=== PATIENT | female | born 1990 | race American Indian/Alaskan Native ===

== ENCOUNTER 2021-10-22 09:56 | Emergency (ER) | payer SELFPAY ==
[2021-10-22] MEDS ORDERED: DEXAMETHASONE 4 MG TAB PO ONE (14:12)
[2021-10-22] MEDS ORDERED: PENICILLIN G BENZATHINE 1.2 MILLION UNIT/2 ML INJ IM ONE (14:12)
[2021-10-22] MEDS ORDERED: KETOROLAC 10 MG TAB PO ONE (14:12)
--- NOTE | 2021-10-22 14:31 | Emergency Department Report ---
ED ENT HPI - General Chief complaint: Pain General Stated complaint: HEAD PAIN/BODY PAIN Time Seen by Provider: 10/22/21 14:04 Source: patient Mode of arrival: Ambulatory Limitations: No Limitations - History of Present Illness Initial comments: 31-year-old black female presents to the emergency department for evaluation of headache, body aches, sore throat, and neck pain that started last night. She denies fever, cough, congestion, nausea, vomiting, and shortness of breath. She states that her symptoms started after her sister who was diagnosed with strep a few days ago came into her bedroom. MD complaint: sore throat -: Gradual, days(s) (1) Location: throat Severity: severe Severity scale (0 -10): 10 Quality: aching Consistency: constant Worsens with: swallowing Associated Symptoms: pain with swallowing, sore throat. denies: fever, cough, gum swelling, toothache, tinnitus, hearing loss, discharge from ear, rhinorrhea - Related Data Home Medications Medication Instructions Recorded Confirmed Last Taken Vits96/Iron Fum/Folic 1 tab PO DAILY 11/16/13 11/21/13 11/19/13 08:00 [ Tablet] 1 tab labetaloL [Normodyne] 200 mg PO BID 11/16/13 11/21/13 11/20/13 10:00 200 mg Previous Rx's Medication Instructions Recorded Last Taken Type Diclofenac Sodium 75 mg PO BID PRN #20 tab 02/04/14 Unknown Rx metroNIDAZOLE [Metronidazole] 500 mg PO BID #10 tablet 06/21/18 Unknown Rx valACYclovir [Valtrex] 500 mg PO BID #20 tab 06/21/18 Unknown Rx Nystas/Diphen/Xyl Visc/Mylanta 30 ml MM Q4H PRN #240 ml 10/22/21 Unknown Rx [Magic Mouthwash] Allergies Allergy/AdvReac Type Severity Reaction Status Date / Time iodine AdvReac Unknown Verified 11/21/13 00:13 ED Dental HPI - General Chief complaint: Pain General Stated complaint: HEAD PAIN/BODY PAIN Time Seen by Provider: 10/22/21 14:04 Source: patient Mode of arrival: Ambulatory Limitations: No Limitations - Related Data Home Medications Medication Instructions Recorded Confirmed Last Taken Vits96/Iron Fum/Folic 1 tab PO DAILY 11/16/13 11/21/13 11/19/13 08:00 [ Tablet] 1 tab labetaloL [Normodyne] 200 mg PO BID 11/16/13 11/21/13 11/20/13 10:00 200 mg Previous Rx's Medication Instructions Recorded Last Taken Type Diclofenac Sodium 75 mg PO BID PRN #20 tab 02/04/14 Unknown Rx metroNIDAZOLE [Metronidazole] 500 mg PO BID #10 tablet 06/21/18 Unknown Rx valACYclovir [Valtrex] 500 mg PO BID #20 tab 06/21/18 Unknown Rx Nystas/Diphen/Xyl Visc/Mylanta 30 ml MM Q4H PRN #240 ml 10/22/21 Unknown Rx [Magic Mouthwash] Allergies Allergy/AdvReac Type Severity Reaction Status Date / Time iodine AdvReac Unknown Verified 11/21/13 00:13 ED Review of Systems ROS: Stated complaint: HEAD PAIN/BODY PAIN Other details as noted in HPI Comment: All other systems reviewed and negative Constitutional: denies: chills, fever ENT: throat pain. denies: congestion Respiratory: denies: cough, shortness of breath Cardiovascular: denies: chest pain, palpitations, dyspnea on exertion Gastrointestinal: denies: abdominal pain, nausea, vomiting Genitourinary: denies: urgency, dysuria Musculoskeletal: denies: back pain Skin: denies: rash, lesions Neurological: headache. denies: weakness ED Past Medical Hx - Past Medical History Hx Hypertension: Yes (PIH) Hx Heart Attack/AMI: No Hx Congestive Heart Failure: No Hx Diabetes: No Hx Deep Vein Thrombosis: No Hx Liver Disease: No Hx Renal Disease: No Hx Sickle Cell Disease: No Hx Seizures: No Hx Asthma: No Hx COPD: No Hx HIV: No Additional medical history: Morbid Obesity - Surgical History Hx Pacemaker: No Hx Internal Defibrillator: No - Social History Smoking Status: Never Smoker Substance Use Type: None - Medications Home Medications: Home Medications Medication Instructions Recorded Confirmed Last Taken Type Vits96/Iron Fum/Folic 1 tab PO DAILY 11/16/13 11/21/13 11/19/13 08:00 History [ Tablet] 1 tab labetaloL [Normodyne] 200 mg PO BID 11/16/13 11/21/13 11/20/13 10:00 History 200 mg Diclofenac Sodium 75 mg PO BID PRN #20 tab 02/04/14 Unknown Rx metroNIDAZOLE [Metronidazole] 500 mg PO BID #10 tablet 06/21/18 Unknown Rx valACYclovir [Valtrex] 500 mg PO BID #20 tab 06/21/18 Unknown Rx Nystas/Diphen/Xyl Visc/Mylanta 30 ml MM Q4H PRN #240 ml 10/22/21 Unknown Rx [Magic Mouthwash] ED Physical Exam - General Limitations: No Limitations General appearance: alert, in no apparent distress - Head Head exam: Present: atraumatic, normocephalic - Eye Eye exam: Present: normal appearance. Absent: conjunctival injection - ENT ENT exam: Present: mucous membranes moist, normal external ear exam. Absent: normal exam - Expanded ENT Exam Expanded Mouth exam: Present: normal external inspection, tongue normal Teeth exam: Present: normal inspection Throat exam: Positive: tonsillar erythema, tonsillomegaly, tonsillar exudate. Negative: R peritonsillar mass, L peritonsillar mass - Neck Neck exam: Present: tenderness, full ROM, lymphadenopathy - Respiratory Respiratory exam: Present: normal lung sounds bilaterally. Absent: respiratory distress, wheezes, rales, rhonchi, chest wall tenderness, accessory muscle use - Cardiovascular Cardiovascular Exam: Present: regular rate, normal heart sounds - GI/Abdominal GI/Abdominal exam: Present: soft, normal bowel sounds. Absent: distended, tenderness, guarding, rebound, rigid - Extremities Exam Extremities exam: Present: normal inspection - Back Exam Back exam: Present: normal inspection - Neurological Exam Neurological exam: Present: alert, oriented X3 - Psychiatric Psychiatric exam: Present: normal affect, normal mood - Skin Skin exam: Present: warm, dry, intact, normal color ED Course Vital Signs 10/22/21 10/22/21 11:09 14:55 Temperature 98.5 F 98.1 F Pulse Rate 74 70 Respiratory 16 16 Rate Blood Pressure 157/66 146/72 [Left] O2 Sat by Pulse 96 100 Oximetry ED Medical Decision Making - Medical Decision Making 31-year-old black female presents to the emergency department for evaluation of headache, body aches, sore throat, and neck pain that started last night. She denies fever, cough, congestion, nausea, vomiting, and shortness of breath. She states that her symptoms started after her sister who was diagnosed with strep a few days ago came into her bedroom. Patient noted to have enlarged, erythematous, and exudative tonsils bilaterally. Positive for anterior cervical lymphadenopathy and severe headache. No cough present. Exam and complaint consistent with exudative pharyngitis likely strep, so patient will be treated with Bicillin 1,200,000 units IM x1 along with a one-time dose of Toradol 10 mg p.o. and Decadron 8 mg p.o. She will be discharged home with prescription for Magic mouthwash to be used as needed for throat pain. She is advised to follow-up with primary care provider if no improvement or worsening symptoms. She verbalized understanding of and agreement with plan of care. Critical care attestation.: If time is entered above; I have spent that time in minutes in the direct care of this critically ill patient, excluding procedure time. ED Disposition Clinical Impression: Exudative pharyngitis Disposition: HOME / SELF CARE / HOMELESS Is pt being admited?: No Does the pt Need Aspirin: No Condition: Stable Instructions: Strep Throat, Adult, [id number] Additional Instructions: Use medication as prescribed. Follow-up with primary care provider if no improvement or worsening symptoms. Prescriptions: Nystas/Diphen/Xyl Visc/Mylanta [Magic Mouthwash] 30 ml MM Q4H PRN #240 ml PRN Reason: Sore Throat Referrals: BRET WILLAMS MD [Referring] - 3-5 Days Forms: Work/School Release Form(ED) Time of Disposition: 14:33
[2021-10-22 14:55] VITALS: BP 146/72
== END 2021-10-22 14:55 | disposition home or self-care (01) ==
LOC: ED 09:56
DX: J02.8 Acute pharyngitis due to other specified organisms (principal); I10 Essential (primary) hypertension; Z91.041 Radiographic dye allergy status
CPT/HCPCS: 96372; 99282; J0561; J8540